=== PATIENT | female | born 1970 | race Hispanic/Latino ===

== ENCOUNTER → 2022-12-15 | Outpatient (CLI) | payer MEDICAID | END | disposition home or self-care (01) | LOC: SHCH 15:01 | PROVIDERS: ATTEND Internal Medicine Cardiovascular Disease | DX: R00.2 Palpitations (principal) | CPT/HCPCS: 93306 ==

== ENCOUNTER → 2024-03-04 | Outpatient (CLI) | payer MEDICAID | END | disposition home or self-care (01) | LOC: RAH 10:01 | PROVIDERS: ATTEND Obstetrics & Gynecology | DX: Z12.31 Encounter for screening mammogram for malignant neoplasm of breast (principal) | CPT/HCPCS: 77067 ==

== ENCOUNTER → 2024-10-20 | Outpatient (CLI) | payer MEDICAID ==
--- NOTE | 2024-10-20 10:49 | HMCIMG ---
THORACIC SPINE 2VWS HISTORY: Neck pain COMPARISON: None FINDINGS: 2 images of thoracic spine were obtained. There is straightening of normal lordotic curvature which may be related to muscle spasm or positioning. No loss of vertebral height is seen. No fracture or dislocation is seen. Degenerative changes are seen. IMPRESSION: 1. No fracture is seen.
--- NOTE | 2024-10-20 10:52 | HMCIMG ---
CERV SPINE 2-3VWS HISTORY: Neck pain COMPARISON: None FINDINGS: 4 images of cervical spine were obtained. There are degenerative changes with cervical spine spondylosis. Disc space narrowing is seen at C5-6 and C6-7 levels. There is straightening of normal lordotic curvature which may be related to muscle spasm or positioning. No loss of vertebral height is seen. No fracture or dislocation is seen. Degenerative changes are seen. IMPRESSION: 1. No fracture is seen.
== END | disposition home or self-care (01) ==
LOC: RAH 09:19
DX: M47.812 Spondylosis without myelopathy or radiculopathy, cervical region (principal); M47.814 Spondylosis without myelopathy or radiculopathy, thoracic region; M48.02 Spinal stenosis, cervical region; M54.2 Cervicalgia; M54.9 Dorsalgia, unspecified
CPT/HCPCS: 72040; 72070

== ENCOUNTER → 2025-01-11 | Outpatient (CLI) | payer MEDICAID ==
--- NOTE | 2025-01-11 11:00 | HMCIMG ---
Lumbar spine 2 views Comparison Study: none History: Vertebrogenic low back pain;Segmental and somatic dysfunction of pelvic reg Findings: Exam of the lumbosacral spine demonstrates no evidence of fracture or subluxation. There are mild spondylitic changes. The facet joints show minimal degenerative changes. The alignment of the spine is normal. The disc spaces are intact. Bone mineralization is normal. Impression: Spondylitic changes and degenerative changes of the apophyseal joints as noted.
--- NOTE | 2025-01-11 12:33 | HMCIMG ---
Exam Type: CERV SPINE 4-5 VWS Clinical Information: CERVICALGIA Comparison: None FINDINGS: C1 through the top of T1 are seen on the lateral view. The prevertebral soft tissues are normal. No fractures or dislocations are seen. There are spondylytic changes and there are degenerative changes of the facet joints. There is narrowing of the C5-6 and C6-7 discs consistent with degenerative disc disease. The other disc spaces are intact. There is adequate alignment. Lateral flexion and extension films demonstrate no abnormal motion. IMPRESSION: Degenerative changes as noted.
--- NOTE | 2025-01-11 13:04 | HMCIMG ---
Exam Type: THORACIC SPINE SERIES 3 views History: CERVICALGIA Comparison: none Findings: Spondylitic and degenerative changes of the dorsal spine are seen. There are degenerative changes of the apophyseal joints as well. The disc spaces are preserved. No fractures or dislocations are noted. No paraspinal soft tissue abnormalities are seen. Impression: 1. DEGENERATIVE CHANGES OF THE SPINE. NO ACUTE FRACTURES OR DISLOCATIONS NOTED AT THIS TIME.
== END | disposition home or self-care (01) ==
LOC: RAH 09:49
PROVIDERS: ATTEND Physical Medicine & Rehabilitation
DX: M47.814 Spondylosis without myelopathy or radiculopathy, thoracic region (principal); M47.812 Spondylosis without myelopathy or radiculopathy, cervical region; M47.816 Spondylosis without myelopathy or radiculopathy, lumbar region; M48.02 Spinal stenosis, cervical region; M54.51 Vertebrogenic low back pain; M99.05 Segmental and somatic dysfunction of pelvic region; G56.03 Carpal tunnel syndrome, bilateral upper limbs; M99.02 Segmental and somatic dysfunction of thoracic region; M54.2 Cervicalgia
CPT/HCPCS: 72050; 72074; 72114

== ENCOUNTER → 2025-04-07 | Outpatient (CLI) | payer MEDICAID | END | disposition home or self-care (01) | LOC: RAH 11:05 | DX: Z12.31 Encounter for screening mammogram for malignant neoplasm of breast (principal) | CPT/HCPCS: 77067 ==

== ENCOUNTER → 2025-06-25 | Outpatient (CLI) | payer MEDICAID ==
--- NOTE | 2025-06-25 17:03 | HMCIMG ---
EXAM: X-RAY PELVIS WITH LEFT HIP ??? AP Pelvis, AP Left Hip, and Lateral Frog-Leg Left Hip Views CLINICAL HISTORY: Evaluation of left hip pain. COMPARISON: No prior imaging available. TECHNIQUE: Anteroposterior radiographs of the pelvis and left hip, along with a lateral frog-leg view of the left hip, were obtained. FINDINGS: Bones: No fracture or dislocation identified. Mild osteopenia of the visualized bony structures is noted. Mild cortical irregularity of the inferior pubic rami bilaterally, likely degenerative. Joints: Hip joint spaces are preserved. Few femoroacetabular and iliac crest osteophytes are seen, suggestive of early degenerative changes. Additional Findings: Visualized sacroiliac joints and lower lumbar vertebrae appear unremarkable. IMPRESSION: * Mild degenerative changes involving the pelvis and bilateral hip joints with osteophyte formation. * Mild cortical irregularity of the inferior pubic rami bilaterally, likely degenerative. * Mild osteopenia. * No evidence of fracture or dislocation. /[place]
--- NOTE | 2025-06-25 17:07 | HMCIMG ---
EXAM: X-RAY PELVIS WITH RIGHT HIP ??? AP Pelvis and AP Right Hip CLINICAL HISTORY: Evaluation of right hip pain. COMPARISON: No prior imaging study available. TECHNIQUE: Anteroposterior radiographs of the pelvis and right hip were obtained. FINDINGS: Bones: No fracture or dislocation identified.Mild osteopenia of the visualized bony structures.Mild cortical irregularity of the inferior pubic rami bilaterally, likely degenerative. Joints: Hip joint spaces are preserved.Few femoroacetabular and iliac crest osteophytes, suggestive of early degenerative changes. Other Structures: Visualized sacroiliac joints and lower lumbar vertebrae appear unremarkable. IMPRESSION: * Mild degenerative changes involving the pelvis and bilateral hip joints with osteophyte formation. * Mild cortical irregularity of the inferior pubic rami bilaterally, likely degenerative. * Mild osteopenia. * No evidence of fracture or dislocation. /[place]
== END | disposition home or self-care (01) ==
LOC: RAH 12:01
PROVIDERS: ATTEND Physical Medicine & Rehabilitation
DX: M16.0 Bilateral primary osteoarthritis of hip (principal); M85.88 Other specified disorders of bone density and structure, other site; M25.752 Osteophyte, left hip; M25.751 Osteophyte, right hip; M25.551 Pain in right hip; M25.552 Pain in left hip
CPT/HCPCS: 73502

== ENCOUNTER → 2025-08-13 | Outpatient (CLI) | payer MEDICAID ==
--- NOTE | 2025-08-14 07:58 | HMCIMG ---
EXAM: CR Chest, 2 Views. CLINICAL HISTORY: Flu A COMPARISON: None provided. FINDINGS: LUNGS: There is no mass. There are subtle opacities noted in the right lower zone. PLEURAL SPACES: No evidence of pleural effusion or pneumothorax. MEDIASTINUM: Cardiac size and mediastinal contours within normal limits. There is pacemaker with leads in place. BONES: No aggressive appearing osseous lesion seen. 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 IMPRESSION: Right lower zone pneumonia. Pacemaker with leads in place. Rudimentary left cervical rib. /[place]
== END | disposition home or self-care (01) ==
LOC: RAH 16:26
PROVIDERS: ATTEND Nurse Practitioner Family
DX: J06.9 Acute upper respiratory infection, unspecified (principal); R06.2 Wheezing
CPT/HCPCS: 71046